=== PATIENT | female | born 1990 | race Hispanic/Latino ===

== ENCOUNTER 2016-11-01 07:28 | Emergency (ER) | payer OTHER ==
[~2016-11-01] VITALS: Ht 157.5 cm; Wt 73.5 kg
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
[2016-11-01] MEDS ORDERED: DICLOFENAC SODI75 M2 PO (10:34)
[2016-11-01 10:41] VITALS: BP 110/67
== END 2016-11-01 11:02 ==
LOC: ERH 07:28
DX: S09.90XA Unspecified injury of head, initial encounter (principal); S00.83XA Contusion of other part of head, initial encounter; R51 Headache; Y00.XXXA Assault by blunt object, initial encounter; Y92.9 Unspecified place or not applicable; Y93.9 Activity, unspecified
CPT/HCPCS: 72050